=== PATIENT | female | born 1945 | race Caucasian/White ===

== ENCOUNTER 2020-08-16 19:44 | Emergency (ER) | payer OTHER ==
[2020-08-16] MEDS ORDERED: ATARAX25 MG PO (21:19)
[2020-08-16] MEDS ORDERED: MEDROL 4MG DOSEP4 MG PO (21:19)
[2020-08-16] MEDS ORDERED: PEPCID AC20 MG PO (21:19)
== END 2020-08-16 21:45 | disposition home or self-care (01) ==
LOC: FER 19:44
DX: L27.0 Generalized skin eruption due to drugs and medicaments taken internally (principal); T36.8X5A Adverse effect of other systemic antibiotics, initial encounter; I10 Essential (primary) hypertension; Z88.5 Allergy status to narcotic agent
CPT/HCPCS: 99282; J1100